=== PATIENT | female | born 1995 | race Caucasian/White ===

== ENCOUNTER 2018-06-20 05:46 | Outpatient (CLI) | END 2018-06-20 08:20 | disposition home or self-care (01) ==

== ENCOUNTER 2018-08-06 19:48 | Outpatient (CLI) | END 2018-08-06 21:40 | disposition home or self-care (01) ==

== ENCOUNTER 2018-08-06 21:45 | Emergency (ER) | END 2018-08-06 22:49 | disposition left against medical advice (07) ==

== ENCOUNTER 2018-10-03 18:22 | Emergency (ER) | payer OTHER ==
[~2018-10-03] VITALS: Wt 50.7 kg
[~2018-10-03 18:22] MED LIST: PREN1TAB79 PO
[2018-10-03] MEDS ORDERED: HYDROmorphONE 1 MG/ML SYG IV STA ×2 (19:17→20:35)
[2018-10-03] MEDS ORDERED: ONDANSETRON 4 MG INJ IV STA ×2 (19:17→20:35)
--- NOTE | 2018-10-03 20:01 | ERD ---
ER Documentation Chief Complaint Chief Complaint R SIDE FLANK PAIN X'S 2 HOURS HPI This is a 23-year-old female who has a history of gallstones that she developed while . She just had a baby 2 weeks ago has no pelvic pain or bleeding issues. She says she is having another gallbladder attack like she has had when she was onset today pain is in the right upper quadrant is crampy and radiates to the right back with nausea but no vomiting or diarrhea. No chest pain shortness of breath or leg swelling ROS All systems reviewed and are negative except as per history of present illness. Medications Home Meds Reported Medications Vit W-Ca,Fe,FA(<1 mg) ( Vitamins) 1 Each Tablet, 1 EACH PO DAILY 06/20/18 Allergies Allergies: Coded Allergies: No Known Allergy (Unverified , 09/14/18) PMhx/Soc Medical and Surgical Hx: pt denies Medical Hx History of Surgery: Yes (Appendectomy) Anesthesia Reaction: No Hx Alcohol Use: No Hx Substance Use: No Hx Tobacco Use: No Smoking Status: Never smoker FmHx Family History: No coronary disease Physical Exam Vitals Vital Signs Date Temp Pulse Resp B/P (MAP) Pulse Ox O2 O2 Flow FiO2 Time Delivery Rate 10/03/18 97.6 92 20 114/88 100 Room Air 19:33 (97) 10/03/18 97.6 92 18 114/68 99 18:40 (83) Physical Exam Const: Well-developed, well-nourished Head: Atraumatic, normocephalic Eyes: Normal Conjunctiva, PERRLA, EOMI, normal sclera, no nystagmus ENT: Normal External Ears, Nose and Mouth, moist mucus membranes. Neck: Full range of motion. No meningismus, no lymphadenopathy. Resp: Clear to auscultation bilaterally, no wheezing, rhonchi, rales Cardio: Regular rate and rhythm, no murmurs, S1 S2 present Abd: Soft, right upper quadrant tenderness mild to moderate, non distended. Normal bowel sounds, no guarding or rebound, no pulsitile abdominal masses or bruits Skin: No petechiae or rashes, no ecchymosis , no maculopapular rash Back: No midline or flank tenderness Ext: No cyanosis, or edema, FROM x 4, normal inspection, neurovascularly intact x 4 Neur: Awake and alert, STR 5/5 x 4, sensation intact x 4, no focal findings, cerebellum intact Psych: Normal Mood and Affect Result Diagram: 10/03/18192510/03/181925 Results 24 hrs Laboratory Tests Test 10/03/18 19:04 10/03/18 19:06 10/03/18 19:26 Bedside Urine pH (LAB) 5.5 Bedside Urine Protein (LAB) Negative Bedside Urine Glucose (UA) Negative Bedside Urine Ketones (LAB) Trace Bedside Urine Blood Trace-lysed Bedside Urine Nitrite (LAB) Negative Bedside Urine Leukocyte Esterase Trace (L POC Beta HCG, Qualitative NEGATIVE White Blood Count 12.1 10^3/ul Red Blood Count 4.11 10^6/ul Hemoglobin 11.9 g/dl Hematocrit 36.4 % Mean Corpuscular Volume 88.6 fl Mean Corpuscular Hemoglobin 29.0 pg Mean Corpuscular 32.7 g/dl Hemoglobin Concent Red Cell Distribution Width 14.2 % Platelet Count 517 10^3/UL Mean Platelet Volume 9.3 fl Immature Granulocytes % 0.300 % Neutrophils % 76.0 % Lymphocytes % 18.2 % Monocytes % 4.6 % Eosinophils % 0.7 % Basophils % 0.2 % Nucleated Red Blood Cells % 0.0 /100WBC Immature Granulocytes # 0.040 10^3/ul Neutrophils # 9.2 10^3/ul Lymphocytes # 2.2 10^3/ul Monocytes # 0.6 10^3/ul Eosinophils # 0.1 10^3/ul Basophils # 0.0 10^3/ul Nucleated Red Blood Cells # 0.0 10^3/ul Sodium Level 146 mmol/L Potassium Level 3.9 mmol/L Chloride Level 109 mmol/L Carbon Dioxide Level 26 mmol/L Anion Gap 11 Blood Urea Nitrogen 15 mg/dl Creatinine 0.71 mg/dl Est Glomerular Filtrat Rate mL/min > 60 mL/min Glucose Level 100 mg/dl Calcium Level 9.7 mg/dl Total Bilirubin 0.1 mg/dl Direct Bilirubin 0.00 mg/dl Indirect Bilirubin 0.1 mg/dl Aspartate Amino Transf (AST/SGOT) 79 IU/L Alanine 40 IU/L Aminotransferase (ALT/SGPT) Alkaline Phosphatase 162 IU/L Total Protein 8.1 g/dl Albumin 4.4 g/dl Globulin 3.70 g/dl Albumin/Globulin Ratio 1.18 Lipase 100 U/L Current Medications Medications Dose Sig/Alexi Start Time Status Last (Trade) Ordered Route PRN Stop Time Admin Dose Reason Admin 1 mg ONCE STAT 10/03/18 DC 10/03/18 Hydromorphone IV 19:17 19:31 HCl 10/03/18 19:18 (Dilaudid) Ondansetron 4 mg ONCE STAT 10/03/18 DC 10/03/18 HCl (Zofran IV 19:17 19:31 Inj) 10/03/18 19:18 Procedures/MDM Ordering MD: JORDAN OWUSU DO Location: E/R Room/Bed: PROCEDURE: Right upper quadrant abdominal ultrasound. CLINICAL INDICATION: Abdominal pain TECHNIQUE: Mora scale and color doppler ultrasound images of the right upper quadrant of the abdomen. COMPARISON: US ABDOMEN 06/20/2018 FINDINGS: Pancreas: Visualized portions appear of normal echogenicity without focal lesions. Liver: Morphology:Normal in size. Contour:Normal, no evidence of nodularity. Echogenicity: Normal. Focal lesions:None. Main portal vein: Patent with hepatopetal flow. Biliary System: Gallbladder wall: Normal thickness. Gallstones: Multiple are present Intrahepatic bile ducts: Normal caliber. Common bile duct diameter (mm): 2.9 Kidneys: Right length (cm) : 9.1 Right cortical thickness: Normal. Echogenicity: Normal. Hydronephrosis: None. Renal calculi: None. Focal lesions: None. Free fluid/ascites: None. Other findings: None. IMPRESSION: Cholelithiasis without evidence of abnormal gallbladder wall thickening to suggest cholecystitis. Normal caliber of the intrahepatic and extrahepatic biliary system. RPTAT: AADD .Delio Nicole MD, Date Time Electronically viewed and signed by .Delio Nicole MD, on 10/03/2018 20:14 .B/ CC: JORDAN OWUSU DO [id number] Patient has stable blood work. No evidence of cholecystitis or choledocho lithiasis at this point. Patient will be referred to general surgery. Will need gallbladder removal at some point future at this time she is stabilized and pain is much better Patient feels much better at this time, and vital signs are normal, symptoms have improved. I did give strict instructions to return to the ED if symptoms continue or worsen, patient will otherwise follow-up with primary care physician. Patient understood instructions and agreed to plan. Disclaimer: Inadvertent spelling and grammatical errors are likely due to EHR/dictation software use and do not reflect on the overall quality of patient care. Also, please note that the electronic time recorded on this note does not necessarily reflect the actual time of the patient encounter. Departure Diagnosis: Primary Impression: Gallstones Condition: Stable JORDAN OWUSU DO Oct 03, 2018 20:01
[2018-10-03] MEDS ORDERED: DICYCLOMINE 20 MG INJ IM ONE (21:00)
[2018-10-03] MEDS ORDERED: HYDR-3980 PO (21:21)
[2018-10-03] MEDS ORDERED: IBUP-1542 PO (21:21)
[2018-10-03 21:25] VITALS: BP 110/69; PULSE 69; RESP 15
== END 2018-10-03 21:37 | disposition home or self-care (01) ==
LOC: E/R 18:22
DX: O99.63 Diseases of the digestive system complicating the puerperium (principal); K80.20 Calculus of gallbladder without cholecystitis without obstruction
CPT/HCPCS: 36415; 76705; 80053; 81003; 81025; 83690; 85025; 96372; 96374; 96375; 96376; J0500; J1170; J2405; Z7502; Z7610

== ENCOUNTER 2018-10-23 09:06 | Day surgery (SDC) | payer OTHER ==
[2018-10-22 17:10] VITALS: Ht 162.6 cm; Wt 56.8 kg
[2018-10-23] VITALS (20 sets, daily range): BP systolic 100–157; BP diastolic 62–86; PULSE 75–130; RESP 11–33
[~2018-10-23] VITALS: Ht 162.6 cm; Wt 56.8 kg
[~2018-10-23 09:06] MED LIST changes: +HYDR-3980 PO; +IBUP-1542 PO; +ONDANSETRON 4 MG INJ ONE
[2018-10-23] MEDS ORDERED: BUPIVACAINE 0.25% (MPF) 30 ML INJ ONE (11:46)
--- NOTE | 2018-10-23 13:01 | PREAC ---
Date/Time of Note Date/Time of Note DATE: 10/23/18 TIME: 12:59 Anesthesia Eval and Record Evaluation Time Pre-Procedure Interview DATE: 10/23/18 TIME: 12:59 Age 23 Sex female NPO: 8 hrs Preoperative diagnosis Cholelithiasis Planned procedure Lap Cholecystectomy Past Medical History Past Medical History: None Surgery & Anesthesia Issues No known issue Meds Anticoagulation: No Beta Mary within 24 hr: No Reason Beta Mary not given: Pt. not on B-Mary Discontinued Reported Medications Vit W-Ca,Fe,FA(<1 mg) ( Vitamins) 1 Each Tablet, 1 EACH PO DAILY 06/20/18 Discontinued Scripts Ibuprofen* (Motrin*) 600 Mg Tab, 600 MG PO Q8, #30 TAB Prov:LEKKOS,APOSTOLOS A. DO 10/03/18 Hydrocodone/Acetaminophen ([place] 10-325 Tablet) 1 Each Tablet, 1 TAB PO Q6H PRN for PAIN, #9 TAB Prov:LEKKOS,APOSTOLOS A. DO 10/03/18 Meds reviewed: Yes Allergies Coded Allergies: No Known Allergy (Unverified , 10/23/18) Allergies Reviewed: Yes Labs/Studies Labs Reviewed: Reviewed by anesthesiologist test: Negative Studies: ECG Pre-procedure Exam Last vitals Vital Signs Date Temp Pulse Resp B/P (MAP) Pulse Ox O2 O2 Flow FiO2 Time Delivery Rate 10/23/18 98.5 100 16 100/64 100 Room Air 10:50 (76) Airway: Adequate mouth opening, Adequate thyromental dist Mallampati: Mallampati II Teeth: Normal Lung: Normal Heart: Normal ASA Physical Status ASA physical status: 2 Emergency: None Planned Anesthetic General/MAC: ETT Planned Pain Management Single shot nerve block, Parenteral pain med, Local by surgeon Pre-operative Attestations Prior to commencing anesthesia and surgery, the patient was re-evaluated, there was verification of: *The patient's identity *The results of appropriate recent lab work and preoperative vital signs *The above evaluation not changing prior to induction *Anesthetic plan, risk benefits, alternative and complications discussed with patient/family; questions answered; patient/family understands, accepts and wishes to proceed. XIOMARA JEFF MD Oct 23, 2018 13:01
[2018-10-23] MEDS ORDERED: MIDAZOLAM 1 MG/ML 2 ML INJ ONE (13:03)
[2018-10-23] MEDS ORDERED: ROCURONIUM 50 MG INJ ONE (13:51)
[2018-10-23] MEDS ORDERED: NEOSTIGMINE 10 MG INJ ONE (13:51)
[2018-10-23] MEDS ORDERED: GLYCOPYRROLATE 0.4 MG INJ ONE (13:51)
[2018-10-23] MEDS ORDERED: PROPOFOL 20 ML ONE (13:51)
[2018-10-23] MEDS ORDERED: LIDOCAINE 2% (SDV) 5 ML INJ ONE (13:51)
--- NOTE | 2018-10-23 13:51 | OPR ---
Date/Time of Note Date/Time of Note DATE: 10/23/18 TIME: 13:49 Operative Report Procedure Date: Oct 23, 2018 Preoperative Diagnosis symptomatic gallstones Postoperative Diagnosis same Operation/Procedure Performed laparoscopic cholecystectomy Surgeon see signature line Hot Knife Cutter Vernon Tate Anesthesia Type: general Estimated Blood Loss: 0 - 10 ml's Transfusion none Specimen gallbladder Grafts/Implants none Complications none Pt Condition Post Procedure: stable Indications This is a 23-year-old female. She has symptomatic gallstones. She required surgical excision of her gallbladder. Risks alternatives benefits and percent were discussed the patient. Patient expressed understanding and consents to the operation. Procedure Description Patient is taken to the OR and prepped and draped in usual sterile fashion. Surgical time was performed. IV antibiotics were given. Infraumbilical trans verse incisions with a 15 blade. Dissection with cautery carried onto the fascia. The fascia was grasped with Parminder and divided with curved Schofield scissors. 0 Vicryl U stitches placed into the fascia. [place] trocar was introduced. Pneumoperitoneum is established. Midepigastric 12 mm optical trochars placed under direct position. Right upper quadrant upper flank 5 mm optical trochars were placed under direct visualization. Upon initial inspection there are some adhesions to gallbladder which taken down bluntly. The gallbladder was grasped the fundus and retracted in a lateral cephalad direction. [place] graspers were used to dissect out the cystic duct and cystic artery. The critical view was established. The cystic duct is divided 3 clips proximally clipped distal and the duct is divided with laparoscopic scissors. The cystic artery was divided to close proximally clipped distal and the division was performed laparoscopic scissors. The gallbladder was taken of the gallbladder bed. Good hemostasis established. The gallbladder is retrieved using Endo Catch bag. Ports removed under direct visualization. 0 Vicryl U stitch in the infraumbilical incision site is closed by tying down. Skin is closed using skin major. A tap block was provided by the anesthesiologist. Dry dressings were applied. Clayton BONILLA Oct 23, 2018 13:51
[2018-10-23] MEDS ORDERED: CEFAZOLIN 1 GM INJ ONE (13:52)
[2018-10-23] MEDS ORDERED: ROPIVACAINE 0.5 % 30 ML VIAL ONE (13:52)
[2018-10-23] MEDS ORDERED: HYDROCODONE/APAP (5/325) TAB PO ONE (14:00)
--- NOTE | 2018-10-23 14:21 | PAC ---
Date/Time of Note Date/Time of Note DATE: 10/23/18 TIME: 14:21 Post-Anesthesia Notes Post-Anesthesia Note Last documented vital signs Vital Signs Date Temp Pulse Resp B/P (MAP) Pulse Ox O2 O2 Flow FiO2 Time Delivery Rate 10/23/18 98.5 100 16 100/64 100 Room Air 10:50 (76) Activity: WNL Respiratory function: WNL Cardiovascular function: WNL Mental status: Baseline Pain reasonably controlled: Yes Hydration appropriate: Yes Nausea/Vomiting absent: Yes Comments BP:106/77, P:92, Spo2:100%, T:98,8 XIOMARA JEFF MD Oct 23, 2018 14:21
[2018-10-23] MEDS ORDERED: MEPERIDINE 25 MG INJ IV PRN (14:30)
[2018-10-23] MEDS ORDERED: HYDROmorphONE 1 MG/5 ML IV SYRINGE IV PRN (14:30)
[2018-10-23] MEDS ORDERED: FENTAnyl 50 MCG/ML VIAL IV PRN (14:30)
[2018-10-23] MEDS ORDERED: ONDANSETRON 4 MG INJ IV PRN (14:30)
[2018-10-23] MEDS ORDERED: METOCLOPRAMIDE 10 MG INJ IV PRN (14:30)
[2018-10-23] MEDS ORDERED: DIPHENHYDRAMINE 50 MG INJ IV PRN (14:30)
[2018-10-23] MEDS: HYDROmorphONE 1 MG/5 ML IV SYRINGE IV PRN ×2 (14:37→14:59)
[2018-10-23] MEDS ORDERED: morphine 2 MG INJ IV STA ×2 (16:41→16:56)
[2018-10-23] MEDS ORDERED: morphine 2 MG INJ ONE (16:42)
== END 2018-10-23 17:59 | disposition home or self-care (01) ==
LOC: SDS 09:06
PROVIDERS: ATTEND Surgery
DX: K80.10 Calculus of gallbladder with chronic cholecystitis without obstruction (principal)
CPT/HCPCS: 47562; 88304; J0690; J1170; J2175; J2250; J2270; J2405; J2710; J2795; J3010; Z7512; Z7610